=== PATIENT | male | born 1965 ===

== ENCOUNTER 2018-10-04 11:16 | Emergency (ER) | payer MEDICAID, OTHER ==
[2018-10-04 11:17] VITALS: BMI 28.8
[2018-10-04 11:28] VITALS: RESP 18; TEMP 98.3
[2018-10-04] MEDS ORDERED: cefTRIAXone (Rocephin) 250 mg Inj IM STA (11:49)
--- NOTE | 2018-10-04 11:54 | ED PDOC ---
Arrival/HPI - General Chief Complaint: Abnormal Skin Integrity Time Seen by Provider: 10/04/18 11:28 Historian: Patient - History of Present Illness Narrative History of Present Illness (Text): 10/04/18 11:49 53 year old male whose past medical history includes herpes (treated with homeopathic medications whenever it flares), presents to the emergency department complaining of a genital rash for the past few days. Patient states his partner with whom he has been with for 4 months told him 2 weeks ago that she was diagnosed with trichomoniasis. He reports some rash to his glans penis. He also states that his partner had a yeast infection recently while having intercourse with her. Patient is also unsure if she is active with other partners. Patient denies any fever, hematuria, dysuria, abdominal pain, or any other complaints. Past Medical History - Provider Review Nursing Documentation Reviewed: Yes - Cardiac Hx Cardiac Disorders: No Hx Angina: No Hx Cardiac Arrhythmia: No Hx Circulatory Problems: No Hx Congestive Heart Failure: No Hx Heart Murmur: No Hx Heart Transplant: No Hx Hypertension: No Hx Internal Defibrillator: No Hx Mitral Valve Prolapse: No Hx Pacemaker: No Hx Peripheral Edema: No Hx Peripheral Vascular Disease: No - Pulmonary Hx Respiratory Disorders: No Hx Asthma: No Hx Bronchitis: No Hx Chronic Obstructive Pulmonary Disease (COPD): No Hx Emphysema: No Hx Pneumonia: No Hx Respiratory Aspiration: No Hx Respiratory Tract Infection: No Hx Sleep Apnea: No Hx Tuberculosis: No - Neurological Hx Neurological Disorder: No Hx Alzheimer's Disease: No HX Cerebrovascular Accident: No Hx Dementia: No Hx Dizziness: No Hx Meningitis: No Hx Migraine: No Hx Parkinson's Disease: No Hx Seizures: No Hx Transient Ischemic Attacks (TIA): No - HEENT Hx HEENT Disorder: No Hx Blind: No Hx Cataracts: No Hx Deafness: No Hx Difficulty Chewing: No Hx Epistaxis: No Hx Glaucoma: No Hx Macular Degeneration: No - Renal Hx Renal Disorder: No Hx Dialysis: No Hx Kidney Stones: No Hx Neurogenic Bladder: No Hx Pyelonephritis: No Hx Renal Cancer: No Hx Renal Failure: No - Endocrine/Metabolic Hx Endocrine Disorders: No Hx Adrenal Cancer: No Hx Diabetes Insipidus: No Hx Diabetes Mellitus Type 1: No Hx Diabetes Mellitus Type 2: No Hx Hyperthyroidism: No Hx Hypothyroidism: No Hx Systemic Lupus Erythematosus: No - Hematological/Oncological Hx Blood Transfusions: No Hx Blood Transfusion Reaction: No - Integumentary Hx Dermatological Disorder: No Hx Basal Cell Carcinoma: No Hx Eczema: No Hx Melanoma: No Hx Psoriasis: No Hx Squamous Cell Carcinoma: No - Musculoskeletal/Rheumatological Hx Musculoskeletal Disorders: No Hx Arthritis: No Hx Back Pain: No Hx Degenerative Joint Disease: No Hx Falls: No Hx Fractures: No Hx Gout: No Hx Herniated Disk: No Hx Myasthenia Gravis: No Hx Osteoarthritis: No Hx Osteomyelitis: No Hx Osteoporosis: No Hx Rhabdomyolysis: No Hx Spinal Stenosis: No Hx Unsteady Gait: No - Gastrointestinal Hx Gastrointestinal Disorders: No Hx Colostomy: No Hx Crohn's Disease: No Hx Diverticulitis: No Hx Gall Bladder Disease: No Hx Gastroesophageal Reflux: No Hx Gastrointestinal Ulcer: No Hx Ileostomy: No Hx Liver Failure: No Hx Pancreatitis: No HX Swallowing Problems: No - Genitourinary/Gynecological Hx Genitourinary Disorders: No Hx Hematuria: No Hx Incontinence: No Hx Prostate Problems: No Hx Sexually Transmitted Diseases: No Hx Urinary Tract Infection: No - Psychiatric Hx Psychophysiologic Disorder: No Hx Anxiety: No Hx Bipolar Disorder: No Hx Depression: No Hx Emotional Abuse: No Hx Hallucinations: No Hx Panic Disorder: No Hx Post Traumatic Stress Disorder: No Hx Psychosis: No Hx Physical Abuse: No Hx Schizophrenia: No Hx Sexual Abuse: No Hx Substance Use: No - Surgical History Hx Appendectomy: Yes - Anesthesia Hx Anesthesia Reactions: No Hx Malignant Hyperthermia: No - Suicidal Assessment Feels Threatened In Home Enviroment: No Family/Social History - Physician Review Nursing Documentation Reviewed: Yes Family/Social History: No Known Family HX Smoking Status: Current Some Days Smoker Hx Alcohol Use: Yes Frequency of alcohol use: Socially Hx Substance Use: No Allergies/Home Meds Allergies/Adverse Reactions: Allergies No Known Allergies Allergy (Verified 10/04/18 11:27) Review of Systems - Physician Review All systems were reviewed & negative as marked: Yes - Review of Systems Constitutional: absent: Fevers Genitourinary Male: absent: Dysuria, Hematuria Physical Exam - Physical Exam Narrative Physical Exam (Text): Constitutional: No acute distress. Head: Normocephalic. Atraumatic. Eyes: PERRL. ENT: Moist mucous membranes. Neck: Supple. Cardiovascular: Regular rate. Chest: No tenderness. Respiratory: Clear to auscultation bilaterally. GI: Soft. Nontender. Nondistended. Genitourinary: No inguinal lymphadenopathy, no scrotum tenderness or edema. No ulcers. No shankers Glans penis with area of erythema and white discoloration. No discharge. No tenderness. Back: No CVA tenderness. Musculoskeletal: No tenderness or swelling of extremities. Skin: No rash. Neurologic: Alert, no focal deficit. Vital Signs Reviewed: Yes Vital Signs Temp Pulse Resp BP Pulse Ox 10/04/18 11:24 98.3 F 62 18 145/88 96 Medical Decision Making ED Course and Treatment: Impression: 53 year old male presents complaining of genital rash for the past few days. Plan: -- Flagyl, Rocephin, Zithromax -- Reassess and disposition Progress Notes: Will treat for Trichomoniasis and other presumed co-infections. Instructed him to follow-up for full STD testing. - Scribe Statement The provider has reviewed the documentation as recorded by the Torin Sanz Provider Scribe Attestation: All medical record entries made by the Torin were at my direction and personally dictated by me. I have reviewed the chart and agree that the record accurately reflects my personal performance of the history, physical exam, medical decision making, and the department course for this patient. I have also personally directed, reviewed, and agree with the discharge instructions and disposition. Disposition/Present on Arrival - Present on Arrival Any Indicators Present on Arrival: No History of DVT/PE: No History of Uncontrolled Diabetes: No Urinary Catheter: No History of Decub. Ulcer: No History Surgical Site Infection Following: None - Disposition Have Diagnosis and Disposition been Completed?: Yes Diagnosis: Trichomonas exposure Disposition: HOME/ ROUTINE Disposition Time: 11:40 Patient Plan: Discharge Condition: GOOD Discharge Instructions (ExitCare): Trichomoniasis, Balanitis (DC) Prescriptions: Clotrimazole 1% Cream [Lotrimin 1%] 1 applic TOP BID #1 tube Forms: [employer] (Setswana)
[2018-10-04 14:23] VITALS: BP 134/78; PULSE 78; O2SAT 98
== END 2018-10-04 13:30 | disposition home or self-care (01) ==
LOC: ED 11:16
DX: Z20.2 Contact with and (suspected) exposure to infections with a predominantly sexual mode of transmission (principal)
CPT/HCPCS: 96372; 99282; J0696